=== PATIENT | male | born 1980 | race Two or more races ===

== ENCOUNTER 2024-06-27 00:50 | Emergency (ER) | payer BC, SELFPAY ==
[2024-06-27 00:51] VITALS: BMI 26.5
[2024-06-27 01:29] VITALS: BP 138/92; PULSE 80; RESP 17; TEMP 36.7; O2SAT 95
--- NOTE | 2024-06-27 01:41 | PD.EDSKIN ---
ED Skin Abcess FB-RME/HPI General Chief complaint: Skin/Abscess/Foreign Body Stated complaint: ITCHING/BURNING ALL OVER BODY Time Seen by Provider: 06/27/24 00:56 Source: patient Arrival date/time: 06/27/24 00:50 44-year-old male presents emergency department complaining of generalized itchiness and dry skin for 3 days after he was cleaning his storage. Patient denies any obvious rash but does report itching. Patient denies any recent exposure to new lotions, soaps, detergents, foods, chemicals, or outdoor plants. Mode of arrival: ambulatory Limitations: no limitations Related Data Previous Rx's ?Medication ?Instructions ?Recorded cholecalciferol (vitamin D3) 50 50 mcg PO QDAY #14 tabs 09/01/22 mcg (2,000 unit) tablet (Vitamin D3) zinc sulfate 50 mg zinc (220 mg) 50 mg PO QDAY #14 caps 09/01/22 capsule (Zinc-220) hydrocortisone 1 % topical cream 1 applic topical BID PRN itching 06/27/24 #28.35 grams hydroxyzine HCl 25 mg tablet 25 mg PO BID PRN itching #10 tabs 06/27/24 Allergies Allergy/AdvReac Type Severity Reaction Status Date / Time No Known Allergies Allergy Verified 06/27/24 00:52 Review of Systems Review of Systems Systems Reviewed: All systems reviewed, normal except as documented Constitutional Constitutional: Reports system reviewed and no additional complaints, except as documented, Denies body ache(s), Denies chills and Denies fever(s) Eyes Eyes: Reports system reviewed and no additional complaints, except as documented and Denies change in vision ENT Ears, Nose, Mouth, and Throat: Reports system reviewed and no additional complaints, except as documented, Denies disequilibrium, Denies dizziness, Denies sore throat and Denies vertigo Cardiovascular Cardiovascular: Reports system reviewed and no additional complaints, except as documented, Denies chest pain and Denies dyspnea Respiratory Respiratory: Reports system reviewed and no additional complaints, except as documented, Denies chest congestion, Denies cough and Denies dyspnea Gastrointestinal Gastrointestinal: Reports system reviewed and no additional complaints, except as documented, Denies abdominal pain, Denies nausea and Denies vomiting Musculoskeletal Musculoskeletal: Reports system reviewed and no additional complaints, except as documented, Denies abnormal gait and Denies arthralgias Integumentary/Breasts Skin/Breast: Reports system reviewed and no additional complaints, except as documented, Denies erythema, Reports rash and Denies wounds Neurologic Neurologic: Reports system reviewed and no additional complaints, except as documented, Denies abnormal gait, Denies disequilibrium, Denies dizziness and Denies vertigo Past Medical History Past Medical History NEUROLOGIC: Negative Neurological Disorders CARDIAC: Negative Cardiac Disorders or Congestive Heart Failure RESPIRATORY: Negative Chronic Obstructive Pulmonary Disease (COPD) GASTROINTESTINAL: Positive Gastrointestinal Disorders and Irritable Bowel GENITOURINARY: Positive Kidney Stones; Negative Renal Disease MUSCULOSKELETAL: Negative Musculoskeletal Disorders ENDOCRINE: Negative Endocrine Disorders, Diabetes Mellitus Type 1 or Diabetes Mellitus Type 2 HEMATOLOGIC: Negative Blood Disorders OTHER HISTORY: Positive Chicken Pox; Negative Autoimmune Disease, Blood Transfusions or Anesthesia Reactions Social History SMOKING STATUS: Never smoker SECOND HAND EXPOSURE: No ED Exam General Limitations: Present no limitations General appearance: Present alert and in no apparent distress Head Head exam: Present atraumatic Eye Eye exam: Present normal appearance, PERRL and EOMI ENT ENT exam: Present normal exam, normal oropharynx and mucous membranes moist Neck Neck exam: Present normal inspection, full ROM and trachea midline Chest Chest inspection: Present normal inspection and symmetric chest wall rise Respiratory Respiratory exam: Present normal lung sounds bilaterally Cardiovascular Cardiovascular exam: Present regular rate, normal rhythm and normal heart sounds Abdominal Exam Abdominal exam: Present soft and normal bowel sounds Extremities Exam Extremities exam: Present normal inspection and full ROM Back Exam Back exam: Present normal inspection and full ROM Neurological Exam Neurological exam: Present alert, oriented X3 and CN II-XII intact Psychiatric Psychiatric exam: Present normal affect and normal mood Skin Skin exam: Present warm, dry, intact and rash Expanded Skin Exam Type of lesion: Present other (Dry skin with generalized redness possibly from scratching to upper back lower ankles and bilateral arms) Distribution: Present generalized Description: Present macular Course Quality Measures none Orders Category Date Time Status hydrOXYzine HCL [Atarax] Med 06/27/24 01:40 Discontinued 50 mg PO X1 ONE Vital Signs Vital signs: Vital Signs Temperature 98.0 F 06/27/24 01:29 Pulse Rate 80 06/27/24 01:29 Respiratory Rate 17 06/27/24 01:29 Blood Pressure 138/92 H 06/27/24 01:29 Pulse Oximetry (%) 95 06/27/24 01:29 Oxygen Delivery Method Room Air 06/27/24 01:29 95% room air within normal limits Skin / Abscess / Foreign Body MDM Narrative MDM Narrative:: 44-year-old male presents emergency department complaining of generalized itchiness and dry skin for 3 days after he was cleaning his storage. Patient denies any obvious rash but does report itching. Patient denies any recent exposure to new lotions, soaps, detergents, foods, chemicals, or outdoor plants. No adventitious lung sounds on auscultation. Patient appears nontoxic and is hemodynamically stable. Patient skin observed to be dry scaly with scattered areas of redness from scratching. No obvious lesions or rashes observed. Patient likely has eczema. Will treat with steroid and hydroxyzine for itching. Patient data External records reviewed:: [facility] previous records Clinical information provided by:: patient Social determinants that could affect healthcare access:: none Patient has the following chronic illnesses:: See chart How is presenting disease/condition affected by chronic disease/condition?: uneffected by Evaluation data The following diagnostics were reviewed and interpreted by me:: other (specify) (N/A) Lab and/or radiology exams considered but not ordered:: N/A Interpretation Summary: N/A Medications / Prescriptions Medications or Prescriptions considered but not ordered:: Ordered Medication administrations:: Medication Administration History Discontinued Medications Hydroxyzine HCl (Hydroxyzine Hcl 25 Mg Tablet) 50 mg PO X1 ONE Stop: 06/27/24 01:41 Given Consultations Consultation(s) initiated? (list below): No Diagnosis Skin/Abscess Differential Diagnosis: viral exanthem, urticaria, allergic reaction to drug, eczema and contact dermatitis Most likely diagnosis given after review of the tests above:: Eczema Admission Indicated Admission indicated?: not indicated Admission Request Was there a request for admission?: No Disposition Plan Disposition Plan: Discharge Discharge Attestation Discharge Attestation: The patient and all family members were given an opportunity to ask questions and understood the discharge instructions. Discharge instructions specifically effects, indications for sooner follow up or return to the emergency department, and the expected course of current diagnosis. Patient condition: Stable Discharge Plan Plan Patient Disposition: HOME (Self Care) Disposition Comment: Stable Prescriptions/Referrals Prescriptions/Med Rec: New hydrocortisone 1 % cream 1 applic topical BID PRN (Reason: itching) Qty: 28.35 0RF hydroxyzine HCl 25 mg tablet 25 mg PO BID PRN (Reason: itching) Qty: 10 0RF No Action cholecalciferol (vitamin D3) [Vitamin D3] 50 mcg (2,000 unit) tablet 50 mcg PO QDAY Qty: 14 0RF zinc sulfate [Zinc-220] 50 mg zinc (220 mg) capsule 50 mg PO QDAY Qty: 14 0RF Problem List Clinical Impression: Eczema Patient/Caregiver Discharge Instructions Discharge Activity: activity as tolerated Education Materials: ED Atopic Dermatitis (Adult) Print Language: Persian Stand Alone Forms: Lexie Award Info., Patient Portal Info Letter PA/TANK ASSEMBLER Supervising Physician PA/TANK ASSEMBLER Supervising Physician: Dr. Cunningham
[2024-06-27] MEDS: hydrOXYzine HCL 25 MG TABLET 50 MG PO (01:51)
== END 2024-06-27 01:53 | disposition home or self-care (01) ==
LOC: SERX 01:48
PROVIDERS: Emergency Provider Emergency Medicine
DX: L30.9 Dermatitis, unspecified (principal)
CPT/HCPCS: 99281; A9270